=== PATIENT | male | born 1975 | race Caucasian/White ===

== ENCOUNTER 2019-01-13 20:05 | Emergency (ER) | payer MEDICARE, MEDICAID ==
[~2019-01-13] VITALS: Ht 175.3 cm; Wt 69.1 kg
[~2019-01-13 20:05] MED LIST: NO HOME MEDS
[2019-01-13 20:06] VITALS: BP 134/84
== END 2019-01-13 21:10 | disposition home or self-care (01) ==
LOC: ER 20:06
DX: S80.812A Abrasion, left lower leg, initial encounter (principal); F31.9 Bipolar disorder, unspecified; F29 Unspecified psychosis not due to a substance or known physiological condition; F12.90 Cannabis use, unspecified, uncomplicated; F15.90 Other stimulant use, unspecified, uncomplicated; Z60.2 Problems related to living alone; Z59.0 Homelessness; Z56.0 Unemployment, unspecified; W45.8XXA Other foreign body or object entering through skin, initial encounter; Y93.89 Activity, other specified; Y92.89 Other specified places as the place of occurrence of the external cause; Y99.8 Other external cause status
CPT/HCPCS: 99281

== ENCOUNTER 2019-06-10 18:49 | Emergency (ER) | payer MEDICARE, MEDICAID ==
[~2019-06-10] VITALS: Ht 175.3 cm; Wt 70.0 kg
[2019-06-10 19:03] VITALS: BP 150/69
[2019-06-10] MEDS: LIDOcaine 5% patch TP SCH ×2 (19:45→20:02)
== END 2019-06-10 20:22 | disposition home or self-care (01) ==
LOC: ER 18:51
DX: R07.81 Pleurodynia (principal); F12.90 Cannabis use, unspecified, uncomplicated; F15.90 Other stimulant use, unspecified, uncomplicated; Z60.2 Problems related to living alone; Z72.89 Other problems related to lifestyle; Z56.0 Unemployment, unspecified; Z59.0 Homelessness
CPT/HCPCS: 71101; 99283

== ENCOUNTER 2019-06-28 20:42 | Emergency (ER) | payer MEDICARE, MEDICAID ==
[~2019-06-28] VITALS: Ht 175.3 cm; Wt 68.0 kg
[2019-06-28 20:55] VITALS: BP 126/83
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
== END 2019-06-28 21:20 | disposition home or self-care (01) ==
LOC: ER 20:43
DX: S00.511A Abrasion of lip, initial encounter (principal); K08.89 Other specified disorders of teeth and supporting structures; F12.90 Cannabis use, unspecified, uncomplicated; F15.90 Other stimulant use, unspecified, uncomplicated; Z60.2 Problems related to living alone; Z59.0 Homelessness; Z56.0 Unemployment, unspecified; Y04.2XXA Assault by strike against or bumped into by another person, initial encounter; Y93.89 Activity, other specified; Y92.89 Other specified places as the place of occurrence of the external cause; Y99.8 Other external cause status
CPT/HCPCS: 99281

== ENCOUNTER 2019-10-11 02:11 | Emergency (ER) | payer MEDICARE, MEDICAID ==
[~2019-10-11] VITALS: Ht 175.3 cm; Wt 65.9 kg
[2019-10-11 02:16] VITALS: BP 127/87
[2019-10-11] MEDS ORDERED: naproxen 500mg tablet PO ONE (02:35)
[2019-10-11] MEDS ORDERED: NAPR-56 PO (02:41)
== END 2019-10-11 03:01 | disposition home or self-care (01) ==
LOC: ER 02:11
DX: S20.212A Contusion of left front wall of thorax, initial encounter (principal); S20.211A Contusion of right front wall of thorax, initial encounter; F31.9 Bipolar disorder, unspecified; F12.90 Cannabis use, unspecified, uncomplicated; F15.90 Other stimulant use, unspecified, uncomplicated; Z98.890 Other specified postprocedural states; Z56.0 Unemployment, unspecified; Z60.2 Problems related to living alone; Z59.0 Homelessness; Z79.899 Other long term (current) drug therapy; Y08.89XA Assault by other specified means, initial encounter; Y93.89 Activity, other specified; Y92.89 Other specified places as the place of occurrence of the external cause; Y99.8 Other external cause status
CPT/HCPCS: 71045; 99283

== ENCOUNTER 2020-06-10 12:14 | Emergency (ER) | payer MEDICARE, MEDICAID ==
[~2020-06-10] VITALS: Ht 175.3 cm; Wt 68.2 kg
[2020-06-10 12:27] VITALS: BP 130/74
[2020-06-10] MEDS ORDERED: LIDOcaine 1% 30ml preserv. free vial IJ STA (13:08)
[2020-06-10] MEDS ORDERED: TETanus/Pertussis (Acell)/Diphther VAC/PF (Tdap-Adult) 0.5ml syringe IMVAC ONE (13:10)
[2020-06-10] MEDS ORDERED: CEPH-585 PO (14:30)
== END 2020-06-10 14:43 | disposition home or self-care (01) ==
LOC: ER 12:15
DX: S61.012A Laceration without foreign body of left thumb without damage to nail, initial encounter (principal); F31.9 Bipolar disorder, unspecified; F12.90 Cannabis use, unspecified, uncomplicated; F15.90 Other stimulant use, unspecified, uncomplicated; Z20.3 Contact with and (suspected) exposure to rabies; Z98.890 Other specified postprocedural states; Z72.89 Other problems related to lifestyle; Z60.2 Problems related to living alone; Z59.0 Homelessness; Z56.0 Unemployment, unspecified; Z79.2 Long term (current) use of antibiotics; W26.0XXA Contact with knife, initial encounter; Y93.89 Activity, other specified; Y92.89 Other specified places as the place of occurrence of the external cause; Y99.8 Other external cause status
CPT/HCPCS: 12002; 90471; 90715; 99283

== ENCOUNTER 2020-06-14 01:41 | Emergency (ER) | payer MEDICARE, MEDICAID ==
[~2020-06-14] VITALS: Ht 175.3 cm; Wt 68.7 kg
[~2020-06-14 01:41] MED LIST changes: +CEPH-585 PO
[2020-06-14 01:44] VITALS: BP 151/61
[2020-06-14] MEDS ORDERED: CEPH-585 PO (03:03)
== END 2020-06-14 03:25 | disposition home or self-care (01) ==
LOC: ER 01:42
DX: S61.411A Laceration without foreign body of right hand, initial encounter (principal); F12.90 Cannabis use, unspecified, uncomplicated; F15.90 Other stimulant use, unspecified, uncomplicated; Z72.89 Other problems related to lifestyle; Z56.0 Unemployment, unspecified; Z59.0 Homelessness; W26.8XXA Contact with other sharp object(s), not elsewhere classified, initial encounter; Y93.89 Activity, other specified; Y92.89 Other specified places as the place of occurrence of the external cause; Y99.8 Other external cause status
CPT/HCPCS: 12001; 73130; 99283

== ENCOUNTER 2020-11-12 21:23 | Emergency (ER) | payer MEDICARE, MEDICAID ==
[~2020-11-12] VITALS: Ht 175.3 cm; Wt 63.6 kg
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
[2020-11-12] MEDS ORDERED: AMOX-419 PO (22:19)
[2020-11-12 22:34] VITALS: BP 101/59
== END 2020-11-12 22:37 ==
LOC: ER 21:23
DX: S71.111A Laceration without foreign body, right thigh, initial encounter (principal); S91.012A Laceration without foreign body, left ankle, initial encounter; S81.031A Puncture wound without foreign body, right knee, initial encounter; S81.832A Puncture wound without foreign body, left lower leg, initial encounter; F19.129 Other psychoactive substance abuse with intoxication, unspecified; F12.90 Cannabis use, unspecified, uncomplicated; F15.90 Other stimulant use, unspecified, uncomplicated; Z56.0 Unemployment, unspecified; Z59.0 Homelessness; Z79.1 Long term (current) use of non-steroidal anti-inflammatories (NSAID); W54.0XXA Bitten by dog, initial encounter; Y93.89 Activity, other specified; Y92.89 Other specified places as the place of occurrence of the external cause; Y99.8 Other external cause status
CPT/HCPCS: 12002; 99283